=== PATIENT | male | born 1995 | race Caucasian/White ===

== ENCOUNTER 2018-04-18 10:13 | Inpatient (IN) ==
[2018-04-18] MEDS ORDERED: Morphine Inj 4 MG/ML Vial IV.PUSH ONE (10:49)
[2018-04-18] MEDS ORDERED: Sod Chloride 0.9% Inj 1,000 ML IV.SIG ONE (10:49)
[2018-04-18] MEDS ORDERED: Clindamycin 600 mg/NS Premix 600 MG/50 ML PIGGYBACK IV.SIG ONE (10:53)
--- NOTE | 2018-04-18 10:58 | ED ---
HPI General Chief complaint: Recheck/Abnormal Lab/Rx Stated complaint: Medical Time Seen by Provider: 04/18/18 10:41 Source: patient and family Mode of arrival: ambulatory Limitations: no limitations History of Present Illness HPI narrative: The patient is a 23-year-old male otherwise healthy that was sent in from an urgent care for evaluation of possible perirectal abscess. He stated he noticed discomfort 3 days ago and thought it was an internal hemorrhoid but he has been progressively getting worse. He denies picking with his fingers or having pimple in the area. No previous history of perirectal abscess. Denies anal intercourse. Denies IV drug use. MD complaint: Reports abscess/boil Onset (ago): day(s) (3) Location: Reports buttocks (Left) Severity: severe Severity scale (1-10): 10 Quality: Reports sharp Pain Consistency: constant Relieving factors: none Exacerbating factors: palpation and movement Context: Reports none Associated symptoms: Reports denies other symptoms Treatments prior to arrival: Reports none Related Data Home Medications Medication Instructions Recorded Confirmed No Known Home Medications 04/18/18 04/18/18 Allergies Allergy/AdvReac Type Severity Reaction Status Date / Time No Known Allergies Allergy Verified 04/18/18 10:35 Review of Systems ROS: all other systems reviewed are negative Constitutional Denies body ache(s), Denies chills, Denies fever(s) and Denies malaise Integumentary/Breasts Reports as per HPI PMFSH History History Provided By: Patient and Family Member Family History Family History Other No pertinent family history Social History Social History Substance History: No History of Abuse Second Hand Smoke Exposure: No Smoking Status: Never smoker How Often Do You Have a Drink Containing Alcohol: 2 to 4 times a month Recent Travel in [facility] within the Last 8 Weeks: No Recent Out of Country Travel within the Last 8 Weeks: No Exam Narrative Exam Narrative: GENERAL: Alert and oriented no distress SKIN: Large abscess formation with indurated tissue on the left buttock in the perirectal area indurated very tender to palpation with surrounding erythema. No drainage. HEAD: Atraumatic. Normocephalic. EYES: Pupils equal and round. No scleral icterus. No injection or drainage. ENT: No nasal bleeding or discharge. Mucous membranes pink and moist. NECK: Trachea midline. No JVD. CARDIOVASCULAR: Regular rate and rhythm. No murmur appreciated. RESPIRATORY: No accessory muscle use. Clear to auscultation. Breath sounds equal bilaterally. GASTROINTESTINAL: Abdomen soft, non-tender, nondistended. Hepatic and splenic margins not palpable. MUSCULOSKELETAL: No obvious deformities. No clubbing. No cyanosis. No edema. NEUROLOGICAL: Awake and alert. No obvious cranial nerve deficits. Motor grossly within normal limits. Normal speech. PSYCHIATRIC: Appropriate mood and affect; insight and judgment normal. Course Initial Documented Vital Signs Temperature 98.1 F 04/18/18 10:30 Pulse Rate 87 04/18/18 10:30 Respiratory Rate 18 04/18/18 10:30 Blood Pressure 163/77 H 04/18/18 10:30 Pulse Oximetry 97 04/18/18 10:30 Last Documented Vital Signs Temperature 98.1 F 04/18/18 10:30 Pulse Rate 80 04/18/18 15:14 Respiratory Rate 18 04/18/18 15:14 Blood Pressure 113/54 L 04/18/18 15:14 Pulse Oximetry 100 04/18/18 15:14 Medical Decision Making [facility] Narrative Medical decision making narrative: Patient with perirectal abscess on CT. Elevated white count. Was given vancomycin Levaquin and Flagyl for perirectal abscess. Market leukocytosis hemodynamically stable not appearing septic. Afebrile will admit for surgical consultation. Medical Screen Exam Complete: Yes Emergency Medical Condition: Yes Lab Data Lab results reviewed: Yes I reviewed the patient's lab results. Result diagrams: 04/18/18 10:58 04/18/18 10:58 Lab Results 04/18/18 04/18/18 04/18/18 Range/Units 10:58 10:58 10:58 WBC 20.9 H (4.0-11.0) th/mm3 RBC 4.99 (4.50-5.90) mil/mm3 Hgb 15.3 (13.0-17.0) gm/dL Hct 44.6 (39.0-51.0) % MCV 89.4 (80.0-100.0) fL MCH 30.8 (27.0-34.0) pg MCHC 34.4 (32.0-36.0) % RDW 13.2 (11.6-17.2) % Plt Count 203 (150-450) th/mm3 MPV 9.1 (7.0-11.0) fL Prelim Diff (Auto) Slide review pending Neut % (Auto) 82.0 H (16.0-70.0) % Lymph % (Auto) 5.8 L (9.0-44.0) % [place] % (Auto) 11.8 H (0.0-8.0) % Eos % (Auto) 0.2 (0.0-4.0) % Baso % (Auto) 0.2 (0.0-2.0) % Neut # (Auto) 17.1 H (1.8-7.7) th/mm3 Lymph # (Auto) 1.2 (1.0-4.8) th/mm3 [place] # (Auto) 2.5 H (0.0-0.9) th/mm3 Eos # (Auto) 0.0 (0.0-0.4) th/mm3 Baso # (Auto) 0.0 (0.0-0.2) th/mm3 WBC Differential Manual diff final Seg Neuts % (Manual) 69 (16-70) % Band Neuts % (Manual) 13 H (0-6) % Lymphocytes % (Manual) 8 L (9-44) % Monocytes % (Manual) 10 H (0-8) % Abs Neuts (Manual) 17.1 H (1.8-7.7) th/mm3 Differential Comment . Platelet Estimate Normal (Normal) Platelet Morphology Normal (Normal) RBC Morphology Normal (Normal) PT 11.8 H (9.8-11.6) sec INR 1.2 Ratio APTT 28.3 (24.3-30.1) sec Sodium 140 (136-145) meq/L Potassium 4.1 (3.5-5.1) meq/L Chloride 102 (98-107) meq/L Carbon Dioxide 26.9 (21.0-32.0) meq/L Anion Gap 11 (5-15) meq/L BUN 9 (7-18) mg/dL Creatinine 1.27 (0.60-1.30) mg/dL Estimated GFR 70 L (>89) mL/min Random Glucose 105 (74-106) mg/dL Calcium 9.1 (8.5-10.1) mg/dL Total Bilirubin 1.2 H (0.2-1.0) mg/dL AST 21 (15-37) U/L ALT 36 (12-78) U/L Alkaline Phosphatase 86 (45-117) U/L Total Protein 7.6 (6.4-8.2) g/dL Albumin 3.7 (3.4-5.0) g/dL Imaging Data Attestation: I personally reviewed and interpreted this imaging study as follows : My impression: There is a perirectal fluid collection well-circumscribed with surrounding edema seen in CT scan on the midline of the perineal area as well as stranding in signs of cellulitis of the left buttock area Radiologist's impression: Abdomen/Pelvis CT 04/18/18 10:49 CONCLUSION: 1. Unremarkable exam. The left groin region is unremarkable in appearance with no evidence of abscess or mass. Discharge Plan Discharge Disposition Patient Disposition: 30 Still Patient Discharge Condition Condition: Good Discharge Details Diagnosis: Lisa-rectal abscess Physicians Team ED Provider: Heriberto Pereira Primary Care Provider: Primary Care [facility] Ham Attending Provider: Rodney Galloway Other Providers: Wilber El Discharge Interventions Interventions: ED Discharge Assessment Last Done: 04/18/18 15:43 Vital Signs Last Done: 04/18/18 10:35 Status ED Status: Admitted Patient
[2018-04-18 11:25] LABS: Baso % (Auto) 0.2 % (0.0-2.0); Eos % (Auto) 0.2 % (0.0-4.0); Hematocrit 44.6 % (39.0-51.0); Hemoglobin 15.3 gm/dL (13.0-17.0); Lymph # (Auto) 1.2 th/mm3 (1.0-4.8); Lymph % (Auto) 5.8 % (9.0-44.0); Mean Corpuscular HGB Conc 34.4 % (32.0-36.0); Mean Corpuscular Hemoglobin 30.8 pg (27.0-34.0); Mean Corpuscular Volume 89.4 fL (80.0-100.0); Mean Platelet Volume 9.1 fL (7.0-11.0); Mono # (Auto) 2.5 th/mm3 (0.0-0.9); Mono % (Auto) 11.8 % (0.0-8.0); Neut # (Auto) 17.1 th/mm3 (1.8-7.7); Platelet Count 203 th/mm3 (150-450); Red Blood Count 4.99 mil/mm3 (4.50-5.90); Red Cell Distribution Width 13.2 % (11.6-17.2); White Blood Count 20.9 th/mm3 (4.0-11.0)
[2018-04-18 11:36] LABS: Activated Partial Thrombo Time 28.3 sec (24.3-30.1); INR 1.2 Ratio; Prothrombin Time 11.8 sec (9.8-11.6)
[2018-04-18 11:50] LABS: Alanine Aminotransferase 36 U/L (12-78); Albumin 3.7 g/dL (3.4-5.0); Anion Gap 11 meq/L (5-15); Aspartate Aminotransferase 21 U/L (15-37); Blood Urea Nitrogen 9 mg/dL (7-18); Calcium 9.1 mg/dL (8.5-10.1); Carbon Dioxide 26.9 meq/L (21.0-32.0); Chloride 102 meq/L (98-107); Glomerular Filtration Rate 70 mL/min (>89); Glucose,Random 105 mg/dL (74-106); Potassium 4.1 meq/L (3.5-5.1); Sodium 140 meq/L (136-145)
[2018-04-18 11:52] LABS: Alkaline Phosphatase 86 U/L (45-117); Total Protein 7.6 g/dL (6.4-8.2)
[2018-04-18 12:16] LABS: Lymphocytes 8 % (9-44); Monocytes 10 % (0-8)
[2018-04-18 12:17] LABS: Platelet Estimate Normal (Normal); Platelet Morphology Normal (Normal); RBC Morphology Normal (Normal)
--- NOTE | 2018-04-18 12:38 | CT ---
EXAM DATE: 04/18/2018 12:05 PM EDT AGE/SEX: 23 years / Male INDICATIONS: Left groin pain, possible abscess. CLINICAL DATA: This is the patient's initial encounter. Patient reports that signs and symptoms have been present for 1 day and indicates a pain score of 3/10. MEDICAL/SURGICAL HISTORY: None. None. ORAL CONTRAST: No oral contrast ingested. RADIATION DOSE: 6.77 CTDI (mGy) COMPARISON: No prior exams available for comparison. TECHNIQUE: Multiple contiguous axial images were obtained through the abdomen and pelvis following b olus infusion of 95 ml Omnipaque 350 (iohexol) nonionic water-soluble contrast as a single exam dos e. No oral contrast ingested. Using automated exposure control and adjustment of the mA and/or kV ac cording to patient size, radiation dose was kept as low as reasonably achievable to obtain optimal di agnostic quality images. DICOM format image data is available electronically for review and comparis on. FINDINGS: Lower Lungs: The visualized lower lungs are clear. Liver: The liver has a homogeneous density without space-occupying lesion. There is no dilation of th e biliary tree. Spleen: Homogeneous density without enlargement. Pancreas: Unremarkable without mass or calcification. Kidneys: Normal in size and shape. No evidence of mass or hydronephrosis. Adrenal Glands: Unremarkable. Aorta: The aorta and proximal iliac vessels are grossly unremarkable without aneurysmal dilation. Bowel/Mesentery: The bowel loops are grossly unremarkable. The cecum and sigmoid colon have a normal configuration. Abdominal Wall: Intact. Retroperitoneum: No evidence of adenopathy in the retrocrural, para-aortic, or deep pelvic regions. Bladder: Contours are smooth. Reproductive Organs: No abnormal masses or calcifications seen. Inguinal: The inguinal region is unremarkable without evidence of adenopathy. Bony Structures: Unremarkable. CONCLUSION: 1. Unremarkable exam. The left groin region is unremarkable in appearance with no evidence of absces s or mass. Electronically signed by: Maurice Srivastava MD 04/18/2018 12:36 PM EDT
[2018-04-18] MEDS ORDERED: Acetaminophen 325 MG Tablet PO PRN (13:59)
--- NOTE | 2018-04-18 14:07 | P.HPIM ---
History of Present Illness Primary Care Physician: No Primary Care Physician Chief Complaint: perianal pain History of Present Illness: patient is a 23 y/o male with no significant past medical history who presented to ER with perianal pain for four days. he says that the pain gradually got worse to the extent he had severe pain with every kind of movement. he reports subjective fever along with chills. he had on and off nausea. he was seen by urgent care when he was referred to ER for further evaluation. Review of Systems All other systems reviewed negative except as stated in HPI PMFSH - History History Provided By: Patient, Family Member - Medical History Medical History: Medical History (Last Reviewed 04/18/18 @ 14:04 by Rodney Galloway MD) Patient denies medical problems - Surgical History Surgical History: Surgical History (Last Reviewed 04/18/18 @ 14:04 by Rodney Galloway MD) H/O shoulder surgery - Family History Family History: Family History (Last Updated 04/18/18 @ 14:04 by Rodney Galloway MD) Other No pertinent family history - Tobacco History Second Hand Smoke Exposure: No Tobacco Use In Past 30 Days: No Smoking Status: Never smoker - Alcohol History How Often Do You Have a Drink Containing Alcohol: 2 to 4 times a month - Substance Use History Substance History: No History of Abuse - Travel History Recent Travel in the [place] Within the Last 8 Weeks: No Recent Travel Out of the Country Within the Last 8 Weeks: No - Immunization History Tetanus Immunization: <5 Years Hx Influenza Vaccine This Season: No Medications and Allergies Active Medications: Active Medications Acetaminophen (Tylenol) 650 mg PO Q4H PRN PRN Reason: fever Levofloxacin/Dextrose (Levaquin 500 Mg Premix Inj) 500 mg in 100 mls @ 100 mls/ hr IV.SIG Q24H [place] Metronidazole/Sodium Chloride (Flagyl 500 Mg Inj) 100 mls @ 100 mls/hr IV.SIG Q8H [place] Sodium Chloride (Ns Inj) 1,000 mls @ 125 mls/hr IV.CONT .Q8H [place] Morphine Sulfate (Morphine Inj) 2 mg IV.PUSH Q4H PRN PRN Reason: acute pain Ondansetron HCl (Zofran Inj) 4 mg IV.PUSH Q8H PRN PRN Reason: nausea Allergies Allergy/AdvReac Type Severity Reaction Status Date / Time No Known Allergies Allergy Verified 04/18/18 10:35 Home Medications Medication Instructions Recorded Confirmed Type No Known Home Medications 04/18/18 04/18/18 History Exam Vital signs: Vital Signs 04/18/18 10:30 04/18/18 10:35 Temperature 98.1 F Pulse Rate 87 84 Respiratory Rate 18 18 Blood Pressure 163/77 H 132/66 Pulse Oximetry 97 98 Intake & Output 04/17/18 04/18/18 04/18/18 18:59 06:59 18:59 Intake Total 1150 / 1150 Balance 1150 / 1150 Weight 92.986 kg Intake: IV 1150 / 1150 Levaquin 750 mg Premix Inj 150 150 / 150 ML @ 100 mls/hr IV.SIG ONCE ONE Rx#:[id number] NS Inj 1,000 ML @ Wide Open IV. 1000 / 1000 SIG BOLUS ONE Rx#:[id number] - Constitutional no acute distress - Routine HEENT Exam Eye: Present: PERRL - Routine Neck Exam Present: supple - Routine Respiratory Exam Present: CTA bilaterally - Routine Cardiovascular Exam Present: RRR - Routine Abdominal Exam Present: soft - Routine Rectal Exam Patient deferred: visual exam (swelling noted at the perianal area on the left side) Digital: Present: mass (swelling and tenderness noted on the left perianal area. ) Results - Labs CBC & Chem 7: 04/18/18 10:58 04/18/18 10:58 Labs: Short CBC 04/18/18 Range/Units 10:58 WBC 20.9 H (4.0-11.0) th/mm3 Hgb 15.3 (13.0-17.0) gm/dL Hct 44.6 (39.0-51.0) % Plt Count 203 (150-450) th/mm3 BMP 04/18/18 10:58 Sodium 140 Potassium 4.1 Chloride 102 Carbon Dioxide 26.9 BUN 9 Creatinine 1.27 Calcium 9.1 Liver Function 04/18/18 Range/Units 10:58 Total Bilirubin 1.2 H (0.2-1.0) mg/dL AST 21 (15-37) U/L ALT 36 (12-78) U/L Alkaline Phosphatase 86 (45-117) U/L Albumin 3.7 (3.4-5.0) g/dL - Imaging Impressions Abdomen/Pelvis CT 04/18/18 10:49 CONCLUSION: 1. Unremarkable exam. The left groin region is unremarkable in appearance with no evidence of abscess or mass. Caprini VTE Risk Assessment Caprini VTE Risk Assessment: No/Low Risk (score <= 1) Caprini Risk Assessment Model: Point Value = 1 Point Value = 2 Point Value = 3 Point Value = 5 Age 41-60 Minor surgery BMI > 25 kg/m2 Swollen legs Varicose veins or History of unexplained or recurrent spontaneous Oral contraceptives or hormone replacement Sepsis (< 1 month) Serious lung disease, including pneumonia (< 1 month) Abnormal pulmonary function Acute myocardial infarction Congestive heart failure (< 1 month) History of inflammatory bowel disease Medical patient at bed rest Age 61-74 Arthroscopic surgery Major open surgery (> 45 min) Laparoscopic surgery (> 45 min) Malignancy Confined to bed (> 72 hours) Immobilizing plaster cast Central venous access Age >= 75 History of VTE Family history of VTE Factor V Leiden Prothrombin [id number] Lupus anticoagulant Anticardiolipin antibodies Elevated serum homocysteine Heparin-induced thrombocytopenia Other congenital or acquired thrombophilia Stroke (< 1 month) Elective arthroplasty Hip, pelvis, or leg fracture Acute spinal cord injury (< 1 month) Prophylaxis Regimen: Total Risk Factor Score Risk Level Prophylaxis Regimen 0-1 Low Early ambulation 2 Moderate Order ONE of the following: *Sequential Compression Device (SCD) *Heparin 5000 units SQ BID 3-4 Higher Order ONE of the following medications: *Heparin 5000 units SQ TID *Enoxaparin/Lovenox 40 mg SQ daily (WT < 150 kg, CrCl > 30 mL/min) *Enoxaparin/Lovenox 30 mg SQ daily (WT < 150 kg, CrCl > 10-29 mL/min) *Enoxaparin/Lovenox 30 mg SQ BID (WT < 150 kg, CrCl > 30 mL/min) AND/OR *Sequential Compression Device (SCD) 5 or more Highest Order ONE of the following medications: *Heparin 5000 units SQ TID (Preferred with Epidurals) *Enoxaparin/Lovenox 40 mg SQ daily (WT < 150 kg, CrCl > 30 mL/min) *Enoxaparin/Lovenox 30 mg SQ daily (WT < 150 kg, CrCl > 10-29 mL/min) *Enoxaparin/Lovenox 30 mg SQ BID (WT < 150 kg, CrCl > 30 mL/min) AND *Sequential Compression Device (SCD) Assessment and Plan - Plan A/P - perianal abscess continue with IV antibiotics and pain control- will consult colorectal surgery and follow the blood cultures. -leukocytosis due to the abscess- on IV antibiotics- repeat CBC in am. Discussed Condition With: ER physician and the patient.
[2018-04-18] MEDS: Morphine Inj 4 MG/ML Vial IV.PUSH PRN ×3 (15:13→23:13)
[2018-04-18] MEDS: Sod Chloride 0.9% Inj 1,000 ML IV.CONT SCH ×2 (17:49→23:24)
[2018-04-18] MEDS ORDERED: fentaNYL Citrate Inj 250 MCG/5 ML Ampul ONE (19:10)
--- NOTE | 2018-04-18 22:39 | MB ---
cc: Wilber El MD DATE: 04/18/2018 REASON FOR CONSULTATION: Perirectal abscess. HISTORY OF PRESENT ILLNESS: Mr. Bradley is a 23-year-old male who has had no significant GI problems in the past. Bowel movements have been fairly regular. Denies any bleeding or hemorrhoid disease. The patient has had pain in the anal area now for the last 3-5 days and thought it may have been a hemorrhoidal problem. The pain and swelling has been getting worse over the last 24-48 hours. He was brought to the emergency room and found to have induration and cellulitis around the perianal area consistent with an abscess. Denies any significant rectal bleeding. No diarrhea, no abdominal pain, nausea, vomiting or melena. Please see the history and physical and consultations for additional past medical and surgical history PHYSICAL EXAMINATION: GENERAL: A very pleasant male in no acute distress. HEENT: Remarkable for pink, dry membranes. Nonicteric sclerae. NECK: Supple without gross adenopathy. LUNGS: Relatively clear, symmetrically expanding. HEART: Regular rhythm. ABDOMEN: Soft and benign. Good bowel sounds. No rebound, guarding or masses noted. RECTAL: Anal inspection reveals fairly benign hemorrhoids, but fairly significant cellulitis and induration along the anterior part of the ischiorectal space, very tender to the touch, quite a bit of induration and thickening. EXTREMITIES: Show no cyanosis or clubbing and minimal pedal edema. LABORATORY AND DIAGNOSTIC DATA: Lab tests all reviewed. CT scan was reviewed showing an inflammatory process and cystic area in the anorectal area. IMPRESSION: A 23-year-old male with induration and thickening consistent with a ischiorectal abscess. PLAN: Discussed at length with the patient and his father. Unfortunately, the patient just finished eating a fairly substantial supper with solid food and liquid soda. Discussed with anesthesia and feel it would be more prudent to continue with antibiotics, IV fluids, make him n.p.o. and plan on an exam under anesthesia and drainage of the abscess first thing in the morning. Risks, benefits, alternatives were discussed and we will try to get him in as soon as possible. Wilber El MD AHR/lori , 10:14 PM , 10:21 PM
[2018-04-19] MEDS: Morphine Inj 4 MG/ML Vial IV.PUSH PRN (02:52)
[2018-04-19] MEDS ORDERED: Sodium Chlor 0.9% Inj 500 ML IV.CONT ONE (05:00)
[2018-04-19] MEDS ORDERED: Chlorhexidine Gluconate 2% 1 Pack (2 Cloths) TOPICAL ONE (05:00)
[2018-04-19] MEDS ORDERED: fentaNYL Citrate Inj 100 MCG/2 ML Ampul ONE ×2 (06:07→06:23)
[2018-04-19] MEDS ORDERED: Lidocaine PF 1% Inj 5 ML Syringe OTHER ONE (06:27)
[2018-04-19] MEDS ORDERED: Potassium Chlor 20 mEq Premix 20 MEQ/100 ML PIGGYBACK IV.SIG PRN (06:56)
[2018-04-19] MEDS ORDERED: Potassium Chlor 40 mEq Premix 40 MEQ/100 ML PIGGYBACK IV.SIG PRN (06:56)
[2018-04-19] MEDS ORDERED: Acetaminophen 325 MG Tablet PO PRN (06:56)
[2018-04-19] MEDS ORDERED: *Meperidine Inj 25 MG/ML Vial PERIprocedural Use ONLY ONE (07:03)
[2018-04-19] MEDS ORDERED: *morphine SULFATE 10 MG/ML PERIprocedure ONLY ONE ×2 (07:06→07:10)
[2018-04-19] MEDS ORDERED: HYDROmorphone PF Inj 2 MG/ML Vial ONE (07:13)
[2018-04-19] MEDS: KCL 20 mEq/D5W/NaCl 0.9% Inj 1,000 ML IV.CONT SCH (07:21)
[2018-04-19] MEDS: Ketorolac Inj 30 MG/ML (IVP) Vial IV.PUSH PRN ×3 (07:53→22:40)
[2018-04-19] MEDS: Levofloxacin 500 mg Premix Inj 500 MG/100 ML PIGGYBACK IV.SIG SCH (09:17)
[2018-04-19] MEDS: Pantoprazole Inj 40 MG Vial IV.PUSH SCH (09:17)
--- NOTE | 2018-04-19 11:09 | P.PNIM ---
Subjective Interval history: Follow-up perianal pain, perirectal abscess status post I&D. Patient just came back from I&D procedure, stated in pain in his bottom, just had Toradol. Now complaining of nausea, with no vomiting. Patient denies any fever or chills. Patient denies any nausea or vomiting, denies any diarrhea or constipation, denies any pain chest pain or shortness of breath. Family at bedside Physical Exam Vital signs: Vital Signs 04/18/18 15:14 04/18/18 16:00 04/18/18 17:37 Temperature 100.2 F H Pulse Rate 80 Respiratory Rate 18 23 Blood Pressure 113/54 L 137/79 Pulse Oximetry 100 97 99 04/18/18 20:00 04/18/18 23:15 04/19/18 00:00 Temperature 98.2 F 99.6 F Pulse Rate 92 H 91 H Respiratory Rate 16 18 16 Blood Pressure 136/69 117/63 Pulse Oximetry 98 95 04/19/18 04:00 04/19/18 06:00 04/19/18 06:54 Temperature 98.9 F 98.0 F 98.6 F Pulse Rate 86 72 75 Respiratory Rate 16 14 24 Blood Pressure 102/53 L 125/67 115/55 L Pulse Oximetry 98 97 100 04/19/18 07:00 04/19/18 07:05 04/19/18 07:15 Temperature Pulse Rate 75 73 Respiratory Rate 20 14 Blood Pressure 120/64 114/59 L Pulse Oximetry 100 100 100 04/19/18 07:30 04/19/18 07:36 04/19/18 08:00 Temperature 98.2 F 98.6 F Pulse Rate 74 80 82 Respiratory Rate 16 16 16 Blood Pressure 114/60 112/55 L 137/77 Pulse Oximetry 99 99 90 L Intake & Output 04/18/18 04/19/18 04/19/18 18:59 06:59 18:59 Intake Total 1300 / 1300 2180 / 2180 100 / 100 Output Total 905 / 905 Balance 1300 / 1300 1275 / 1275 100 / 100 Weight 90.2 kg 92.1 kg Intake: IV 1300 / 1300 1400 / 1400 100 / 100 NS Inj 1,000 ML @ 80 mls/hr IV. 1300 / 1300 CONT .[id number] [facility] Rx#:[id number] Levaquin 500 mg Premix Inj 500 100 / 100 mg In 100 ml @ 100 mls/hr IV. SIG Q24H [facility] Rx#:[id number] Levaquin 750 mg Premix Inj 150 150 / 150 ML @ 100 mls/hr IV.SIG ONCE ONE Rx#:[id number] NS Inj 1,000 ML @ Wide Open IV. 1000 / 1000 SIG BOLUS ONE Rx#:[id number] Flagyl 500 MG Inj 100 ML @ 100 100 / 100 100 / 100 mls/hr IV.SIG Q8H [facility] Rx#: [id number] Oral 480 / 480 Anesthesia Amount 300 / 300 Output: Urine 900 / 900 Estimated Blood Loss 5 / 5 Other: # Bowel Movements 0 Weight On Admission 90.2 kg Narrative: GENERAL: Well-developed, well-nourished, young male, alert and oriented x3, in no apparent distress SKIN: Left perianal wound with packing slight drainage noted. HEAD: Atraumatic. Normocephalic. EYES: Pupils equal and round. No scleral icterus. No injection or drainage. ENT: No nasal bleeding or discharge. Mucous membranes pink and moist. NECK: Trachea midline. No JVD. CARDIOVASCULAR: Regular rate and rhythm. RESPIRATORY: No accessory muscle use. Clear to auscultation. Breath sounds equal bilaterally. GASTROINTESTINAL: Abdomen soft, non-tender, nondistended. Hepatic and splenic margins not palpable. MUSCULOSKELETAL: Extremities without clubbing, cyanosis, or edema. No obvious deformities. NEUROLOGICAL: Awake and alert. No obvious cranial nerve deficits. Motor grossly within normal limits. Five out of 5 muscle strength in the arms and legs. Normal speech. PSYCHIATRIC: Appropriate mood and affect; insight and judgment normal. Results - Labs CBC & Chem 7: 04/19/18 11:55 04/18/18 10:58 Laboratory Results - last 24 hr 04/18/18 04/18/18 04/18/18 10:58 10:58 10:58 WBC 20.9 H RBC 4.99 Hgb 15.3 Hct 44.6 MCV 89.4 MCH 30.8 MCHC 34.4 RDW 13.2 Plt Count 203 MPV 9.1 Prelim Diff (Auto) Slide review pending Neut % (Auto) 82.0 H Lymph % (Auto) 5.8 L [place] % (Auto) 11.8 H Eos % (Auto) 0.2 Baso % (Auto) 0.2 Neut # (Auto) 17.1 H Lymph # (Auto) 1.2 [place] # (Auto) 2.5 H Eos # (Auto) 0.0 Baso # (Auto) 0.0 WBC Differential Manual diff final Seg Neuts % (Manual) 69 Band Neuts % (Manual) 13 H Lymphocytes % (Manual) 8 L Monocytes % (Manual) 10 H Abs Neuts (Manual) 17.1 H Differential Comment . Platelet Estimate Normal Platelet Morphology Normal RBC Morphology Normal PT 11.8 H INR 1.2 APTT 28.3 Sodium 140 Potassium 4.1 Chloride 102 Carbon Dioxide 26.9 Anion Gap 11 BUN 9 Creatinine 1.27 Estimated GFR 70 L Random Glucose 105 Calcium 9.1 Total Bilirubin 1.2 H AST 21 ALT 36 Alkaline Phosphatase 86 Total Protein 7.6 Albumin 3.7 Microbiology 04/18/18 10:48 Blood - Peripheral Aerobic Blood Culture - Preliminary No growth in 1 day 04/18/18 10:48 Blood - Peripheral Anaerobic Blood Culture - Preliminary No growth in 1 day 04/18/18 10:58 Blood - Peripheral Aerobic Blood Culture - Preliminary No growth in 1 day 04/18/18 10:58 Blood - Peripheral Anaerobic Blood Culture - Preliminary No growth in 1 day - Imaging Impressions Abdomen/Pelvis CT 04/18/18 10:49 CONCLUSION: 1. Unremarkable exam. The left groin region is unremarkable in appearance with no evidence of abscess or mass. Assessment and Plan - Assessment (1) Perianal pain Code(s): K62.89 - Other specified diseases of anus and rectum Status: Acute (2) Lisa-rectal abscess Code(s): K61.1 - Rectal abscess Status: Acute - Plan This patient is a 23 y/o young male with no significant past medical history who presented to ER with perianal pain/perianal abscess status post I&D. Perirectal abscess/ -Status post I&D this morning - continue with IV antibiotics, IV -Continue pain medication for pain control -colorectal surgery consulted: Status post I&D today -blood cultures: no growth in 1 day -Continue IV fluid D5W with KCl Leukocytosis Likely related to perirectal abscess No fever or chills -Continue on on IV antibiotics -WBC improved was 20.9 today 14.1 -Monitor CBC Nausea no vomiting -Likely due to pain medication -Unrelieved with Zofran -Changed to Compazine DVT prophylaxis: Increase ambulation add SCD Code Status: Full code Discussed Condition With: Patient and nurse
[2018-04-19] MEDS: Sod Chloride 0.9% Inj 1,000 ML IV.CONT SCH (11:49)
[2018-04-19 12:42] LABS: Baso % (Auto) 0.3 % (0.0-2.0); Eos % (Auto) 0.1 % (0.0-4.0); Hematocrit 39.1 % (39.0-51.0); Hemoglobin 13.4 gm/dL (13.0-17.0); Lymph # (Auto) 0.9 th/mm3 (1.0-4.8); Lymph % (Auto) 6.5 % (9.0-44.0); Mean Corpuscular HGB Conc 34.3 % (32.0-36.0); Mean Corpuscular Hemoglobin 30.7 pg (27.0-34.0); Mean Corpuscular Volume 89.5 fL (80.0-100.0); Mean Platelet Volume 8.8 fL (7.0-11.0); Mono # (Auto) 1.4 th/mm3 (0.0-0.9); Neut # (Auto) 11.7 th/mm3 (1.8-7.7); Neut % (Auto) 83.1 % (16.0-70.0); Platelet Count 160 th/mm3 (150-450); Red Blood Count 4.36 mil/mm3 (4.50-5.90); Red Cell Distribution Width 12.8 % (11.6-17.2); White Blood Count 14.1 th/mm3 (4.0-11.0)
--- NOTE | 2018-04-19 18:27 | MP ---
cc: Wilber El MD DATE OF OPERATION: 04/19/2018 PREOPERATIVE DIAGNOSIS: Ischiorectal abscess. PROCEDURE PERFORMED: Exam under anesthesia with incision and drainage and debridement of a large ischiorectal abscess. POSTOPERATIVE DIAGNOSIS: Ischiorectal abscess. SURGEON: Wilber El MD DESCRIPTION OF PROCEDURE: The patient was placed in the left lateral decubitus position. After adequate anesthesia and sedation, his buttocks were taped apart, prepped with Betadine solution and draped in the usual sterile fashion. Initially, the anal canal was dilated and a half giron retractor inserted. Examination revealed induration and cellulitis along the left ischiorectal space. The area was quite woody and almost fluctuant. No internal opening was seen along the anterior part of the canal. A radial incision was therefore made over the large area of cellulitis and a large cavity entered, releasing foul-smelling purulent fluid. The cavity was opened along its full extent. It did not appear to have any obvious entrance into the anal canal, although the muscle layer was pretty thin anteriorly. The cavity was irrigated copiously. Some loculations were broken up. Hemostasis was achieved at several sites. After adequate debridement, the cavity was packed loosely with a Kerlix dressing and a large Fluff dressing placed externally. The patient tolerated the procedure quite well and was brought to the recovery room in stable condition. MD CHLOÉ Bravo/lori , 05:56 PM , 06:04 PM
[2018-04-20] MEDS: KCL 20 mEq/D5W/NaCl 0.9% Inj 1,000 ML IV.CONT SCH (00:29)
[2018-04-20 04:24] LABS: Baso % (Auto) 0.4 % (0.0-2.0); Eos # (Auto) 0.1 th/mm3 (0.0-0.4); Eos % (Auto) 0.6 % (0.0-4.0); Hematocrit 38.5 % (39.0-51.0); Hemoglobin 13.2 gm/dL (13.0-17.0); Lymph # (Auto) 1.2 th/mm3 (1.0-4.8); Lymph % (Auto) 14.4 % (9.0-44.0); Mean Corpuscular HGB Conc 34.4 % (32.0-36.0); Mean Corpuscular Hemoglobin 30.6 pg (27.0-34.0); Mean Corpuscular Volume 88.9 fL (80.0-100.0); Mean Platelet Volume 8.9 fL (7.0-11.0); Mono # (Auto) 0.7 th/mm3 (0.0-0.9); Mono % (Auto) 8.9 % (0.0-8.0); Neut # (Auto) 6.3 th/mm3 (1.8-7.7); Neut % (Auto) 75.7 % (16.0-70.0); Platelet Count 176 th/mm3 (150-450); Red Blood Count 4.33 mil/mm3 (4.50-5.90); White Blood Count 8.3 th/mm3 (4.0-11.0)
[2018-04-20] MEDS: Ketorolac Inj 30 MG/ML (IVP) Vial IV.PUSH PRN (04:53)
[2018-04-20 04:55] LABS: Anion Gap 7 meq/L (5-15); Blood Urea Nitrogen 9 mg/dL (7-18); Calcium 8.4 mg/dL (8.5-10.1); Carbon Dioxide 30.9 meq/L (21.0-32.0); Chloride 104 meq/L (98-107); Glomerular Filtration Rate Greater Than 89 mL/min (>89); Glucose,Random 99 mg/dL (74-106); Potassium 4.1 meq/L (3.5-5.1); Sodium 142 meq/L (136-145)
[2018-04-20] MEDS: Levofloxacin 500 mg Premix Inj 500 MG/100 ML PIGGYBACK IV.SIG SCH (08:36)
[2018-04-20] MEDS: Pantoprazole Inj 40 MG Vial IV.PUSH SCH (08:39)
[2018-04-20 09:10] VITALS: BP 111/59; PULSE 59; RESP 18; TEMP 97.9; O2SAT 98
--- NOTE | 2018-04-20 09:11 | P.DS ---
Date of admission: 04/18/18 14:41 Primary care physician: No Primary Care Physician Attending physician on discharge: Jerson Johnson Anticipated date of discharge: 04/20/18 Brief History from admission: patient is a 23 y/o male with no significant past medical history who presented to ER with perianal pain for four days. he says that the pain gradually got worse to the extent he had severe pain with every kind of movement. he reports subjective fever along with chills. he had on and off nausea. he was seen by urgent care when he was referred to ER for further evaluation. Patient update on day of discharge: Patient seen and examined laying in bed stated he is in excruciating pain on the incision site, stated that the pain is worse with movement and touching, stated last pain medication, Toradol was last night, stated did not have any pain medication this morning. Patient denies any fever or chills, denies any nausea or vomiting. Patient stated was nauseated from pain yesterday and last night. Patient denies abdominal pain. Discussed with nursing, discussed plan for discharge planning with pain medication and follow-up with Dr. El. Patient stated he was from [facility] of [place] [facility] so he does not have primary care physician here but he plans to stay for a month or 2 for vacation, his parents live here. Discussed the availability of the community clinic and instructed to call to get an appointment. Also have a long conversation with his father yesterday afternoon, discussed concerns on pain medication, discuss concerns on that patient situation, discuss concern on the surgery procedure. DS: Diagnosis - Discharge Diagnosis (1) Perianal pain Status: Acute (2) Lisa-rectal abscess Status: Acute (3) Ischiorectal abscess Status: Acute (4) Cellulitis and abscess of buttock Status: Acute DS: Summary Hospital Course: This patient is a 23 y/o young male with no significant past medical history who presented to ER with perianal pain/perianal abscess. Patient underwent incision and drainage and debridement of a large ischiorectal abscess. Patient was kept overnight due to excruciating pain on the incision site associated with nausea. Patient was treated with IV antibiotic, Levaquin and Flagyl. - Time Spent with Patient Total time spent providing and/or coordinating discharge services: Less than 30 minutes - Quality: VTE Deep Vein Thrombosis/Pulmonary Embolism Present on Admission: No Exam Vital signs: Vital Signs 04/19/18 12:00 04/19/18 20:00 04/20/18 04:00 Temperature 97.4 F L 97.9 F 97.4 F L Pulse Rate 68 63 76 Respiratory Rate 16 16 16 Blood Pressure 107/63 116/56 L 115/74 Pulse Oximetry 95 99 99 Intake & Output 04/19/18 04/20/18 04/20/18 18:59 06:59 18:59 Intake Total 2480 / 2480 1500 / 1500 Output Total 1000 / 1000 Balance 1480 / 1480 1500 / 1500 Weight 97.3 kg Intake: IV 1999 / 1999 780 / 780 D5W/NS + KCL 20 mEq Inj 1,000 670 / 670 ML @ 60 mls/hr IV.CONT .[id number] [facility] Rx#:[id number] LR 1000 mL Inj 1,000 ML @ 30 1000 / 1000 mls/hr IV.CONT .Q24H [facility] Rx#: [id number] NS Inj 1,000 ML @ 80 mls/hr IV. 700 / 700 CONT .[id number] [facility] Rx#:[id number] Levaquin 500 mg Premix Inj 500 100 / 100 mg In 100 ml @ 100 mls/hr IV. SIG Q24H [facility] Rx#:[id number] Flagyl 500 MG Inj 100 ML @ 200 200 / 200 110 / 110 mls/hr IV.SIG Q8H [facility] Rx#: [id number] Oral 480 / 480 720 / 720 Output: Urine 1000 / 1000 Other: # Voids 2 Date of Last Bowel Movement 04/19/18 # Bowel Movements 0 0 Narrative: GENERAL: Well-developed, well-nourished, young male, alert and oriented x3, in no apparent distress SKIN: Left perianal wound with packing moderate serous drainage noted. HEAD: Atraumatic. Normocephalic. EYES: Pupils equal and round. No scleral icterus. No injection or drainage. ENT: No nasal bleeding or discharge. Mucous membranes pink and moist. NECK: Trachea midline. No JVD. CARDIOVASCULAR: Regular rate and rhythm. RESPIRATORY: No accessory muscle use. Clear to auscultation. Breath sounds equal bilaterally. GASTROINTESTINAL: Abdomen soft, non-tender, nondistended. Hepatic and splenic margins not palpable. MUSCULOSKELETAL: Extremities without clubbing, cyanosis, or edema. No obvious deformities. NEUROLOGICAL: Awake and alert. No obvious cranial nerve deficits. Motor grossly within normal limits. Five out of 5 muscle strength in the arms and legs. Normal speech. PSYCHIATRIC: Appropriate mood and affect; insight and judgment normal. Results Procedures completed during hospitalization: Incision and drainage and debridement Labs on day of discharge: Labs from last 24 hours 04/20/18 04/20/18 04/19/18 03:55 03:55 11:55 WBC 8.3 14.1 H RBC 4.33 L 4.36 L Hgb 13.2 13.4 Hct 38.5 L 39.1 MCV 88.9 89.5 MCH 30.6 30.7 MCHC 34.4 34.3 RDW 13.0 12.8 Plt Count 176 160 MPV 8.9 8.8 Neut % (Auto) 75.7 H 83.1 H Lymph % (Auto) 14.4 6.5 L Swift % (Auto) 8.9 H 10.0 H Eos % (Auto) 0.6 0.1 Baso % (Auto) 0.4 0.3 Neut # (Auto) 6.3 11.7 H Lymph # (Auto) 1.2 0.9 L Swift # (Auto) 0.7 1.4 H Eos # (Auto) 0.1 0.0 Baso # (Auto) 0.0 0.0 WBC Differential . . Differential Comment Auto diff final Auto diff final Sodium 142 Potassium 4.1 Chloride 104 Carbon Dioxide 30.9 Anion Gap 7 BUN 9 Creatinine 0.92 Estimated GFR Greater than 89 Random Glucose 99 Calcium 8.4 L Preliminary micro results at discharge 04/18/18 10:48 Aerobic Blood Culture - Preliminary Blood - Peripheral No growth in 1 day Anaerobic Blood Culture - Preliminary No growth in 1 day 04/18/18 10:58 Aerobic Blood Culture - Preliminary Blood - Peripheral No growth in 1 day Anaerobic Blood Culture - Preliminary No growth in 1 day - Impressions ITS Impressions Abdomen/Pelvis CT 04/18/18 10:49 CONCLUSION: 1. Unremarkable exam. The left groin region is unremarkable in appearance with no evidence of abscess or mass. Discharge Plan - Discharge Disposition Patient Disposition: /Home Health Service - Discharge Condition Condition: Good - Discharge Order Discharge Orders: Discharge Order (Routine); Ordered 04/19/18 Ordered By: Wilber El - Physicians Team Primary Care Provider: [facility] Attending Provider: Jerson Johnson Other Providers: Wilber El MD ; [facility],Insurance
--- NOTE | 2018-04-20 09:13 | P.DCO ---
- Diagnosis (1) Cellulitis and abscess of buttock Status: Acute (2) Ischiorectal abscess Status: Acute (3) Lisa-rectal abscess Status: Acute (4) Perianal pain Status: Acute - Home Health Nursing Order: Signs/symptoms of disease process, Wound care and dressing changes, Nursing assessment with vital signs - Case Management Consult Yes - Certification I have seen patient Robinson Bradley on 04/20/18. My clinical findings support the need for the requested home health care services because: Infection with risk of complications I certify that my clinical findings support that this patient is homebound because: Post-op weakness
[2018-04-20] MEDS ORDERED: Naloxone Inj 2 MG/2 ML Vial NASAL ONE (15:34)
[2018-04-20] MEDS ORDERED: Naloxone Inj 2 MG/2 ML Vial NASAL PRN (16:36)
[2018-04-21] MEDS ORDERED: levoFLOXacin 500 MG Tablet PO SCH (09:00)
== END 2018-04-20 14:40 | disposition home health service (06) ==
LOC: NEPC 10:13 → OBSVTOIN 14:41 → NEDA 14:41 → INTOOBSV 14:41 → N04 14:50
PROVIDERS: ADMIT Internal Medicine; ATTEND Internal Medicine